=== PATIENT | female | born 1950 | race Caucasian/White ===

== ENCOUNTER 2023-09-27 18:44 | Inpatient (IN) | payer OTHER, SELFPAY ==
[2023-09-27] VITALS (7 sets, daily range): BP systolic 107–150; BP diastolic 56–83; BMI 21.1; BMI 20.4
[2023-09-27 16:07] LABS: COVID-19 Antigen Negative (Negative)
[2023-09-27 17:00] LABS: % Immature Granulocytes 3.1 % (0-0.5); % Lymphocytes 31.5 % (20.5-51.1); % Monocytes 14.5 % (1.7-9.3); % Neutrophils 49.9 % (42.2-75.2); Absolute Immature Granulocytes 0.1 10^3/uL (0-0.05); Absolute Lymphocytes 1.3 10^3/uL (1.2-3.4); Absolute Monocytes 0.6 10^3/uL (0.1-0.6); Absolute Neutrophils 2.1 10^3/uL (1.4-6.5); Hematocrit 39.6 % (37.0-47.0); Hemoglobin 13.4 g/dL (12.0-16.0); Mean Corp Hgb Conc. 33.8 g/dL (33.0-37.0); Mean Corpuscular Hgb 28.5 pg (27.0-31.0); Mean Corpuscular Volume 84.3 fL (81.0-99.0); Mean Platelet Volume 10.9 fL (7.4-10.4); Nucleated Red Blood Cells % 0 %; Platelet Count 274 10^3/uL (130-400); White Blood Cell Count 4.1 10^3/uL (4.8-10.8)
--- NOTE | 2023-09-27 17:11 | ED.GENMED ---
History of Present Illness
General
Chief Complaint: Breathing Problem
Source: patient
Exam Limitations: none
Time Seen by Provider: 09/27/23 16:17
Nursing documentation reviewed up to this point in time: agreed with
Travel History
Have you had any contact with someone who has COVID-19?: No
Do you have any symptoms of coronavirus? Fever > 100 degrees, chills, cough, shortness of breath, sore throat, loss of taste or smell, muscle aches, or headache?: Yes
Symptoms:: fever and cough
History of Present Illness
History of Present Illness:
Patient presents to ED secondary to worsening cough, shortness of breath, and decreased appetite, along with fever as high as up to 105 over the past 1 week. Denies chest pain. Denies nausea, vomiting, or diarrhea. Denies headache. Denies
dizziness. Denies recent travel. Denies sick contact. Denies back pain. Denies leg pain or swelling.
Review of Systems
Review of Systems
Allergies reviewed?: Yes
All Other Systems: ROS reviewed and negative except as documented in HPI and ROS
Constitutional: Reports fever and chills
EENT: Reports no symptoms
Respiratory: Reports cough and trouble breathing
Cardiac: Reports no symptoms
ABD/GI: Reports no symptoms; Denies abdominal pain, vomiting or diarrhea
: Reports no symptoms
Musculoskeletal: Reports no symptoms
Skin: Reports no symptoms
Neurological: Reports no symptoms
Phy Exam
Physical Exam
Physical Exam:
Physical Exam
General: mild distress, not acutely ill. afebrile
Head: nc/at. eomi
Neck: supple. no meningeal signs.
Heart: s1/s2 regular rate and rhythm, no murmur. equal radial pulses.
Lungs: mild respiratory distress. diminished breath sounds bilaterally
Abdomen: normal bowel sounds. not tender.
Neuro: alert and oriented. no focal neurological deficits
Skin: no rash
Psychiatric: well kept. interactive and cooperative
Extremities: no edema. no calf tenderness.
Scores
Heart Failure Risk
Heart Failure Risk Score: Not Applicable
Course
Orders/Labs/Results
Orders:
Orders
09/27/23 Dinner
Regular
At Your Request: Full Participation
09/27/23 15:44
COVID-19 Antigen Urgent
Source: Nasal Swab
INF RAPID [Influenza A+B Rapid Molecular] Urgent
DARLYN Source: Nasal Swab
Specimen Description:
09/27/23 16:47
CR Chest - 2 Views Urgent
Comment:
Reason For Exam: cough/sob
09/27/23 16:48
Complete Blood Count/With Diff Urgent
Comprehensive Metabolic Panel Urgent
09/27/23 17:10
Guaifenesin/Codeine Solution [Robitussin AC] 10 ml PO NOW STA
09/27/23 17:57
Azithromycin 500 mg/250 ml [Zithromax Infusion] 500 mg in 250 ml IV NOW
CefTRIAXone [Rocephin] 1,000 mg IV NOW STA
09/27/23 18:06
Potassium Chloride [KCl] 40 meq PO NOW STA
09/27/23 18:11
EKG [Electrocardiogram (*1)] Urgent
Reason for Study: Tachycardia
EKG- Treatment ONCE
09/27/23 18:15
CT Chest Pe Study Urgent
Comment:
Reason For Exam: hypoxia, SOB
Lactic Acid Q4H
Comment: CANCEL 2nd LACTIC ACID IF 1st LACTIC ACID IS LESS THAN 2
Blood Culture Q30M
DARLYN Source: Blood/Venous
Specimen Description:
Blood Culture Q30M
DARLYN Source: Blood/Venous
Specimen Description:
09/27/23 18:18
Admit/Transfer Patient As Directed
Co-Sign Provider:
Level of Care: Inpatient admission
Assign to:: IMU- Intermediate Care
Physician / Group: Cecil/hospitalist
Diagnosis: hypoxia
Reason for Hospitalization: hypoxia
Expected length of stay greater than two midnights?: Yes
ELOS- Estimated Length of Stay in days: 4
I certify the patient meets the requirements for IP care: Yes
09/27/23 18:19
Code Status As Directed
Resuscitation Status: Full Code
09/27/23 18:39
Procalcitonin Routine
09/27/23 19:51
Acetaminophen [Tylenol] 650 mg PO Q6HPRN PRN
09/27/23 19:51
MRSA Screen Routine
DARLYN Source: Nose
Specimen Description:
Activity As Directed
Activity Level: Out of Bed-Early Mobility
Intake/ Output As Directed
Frequency: Per unit guidelines
Vital Signs As Directed
Frequency: Per unit guidelines
Weight As Directed
Frequency: Once
Comment: on admission
Xopenex Reason for Use As Directed
Reason for ordering Xopenex instead of Albuterol: tachycardia
Ot Eval And Treat Routine
Pt Eval And Treat Routine
Activity Level: As Tolerated
DX Deep Vein Thrombosis Video Routine
09/27/23 20:00
0.9% Sodium Chloride 250 ml [Nss] 250 ml IV BOLUS
Ipratropium Nebs [Atrovent Nebules] 0.5 mg INH R TID
Levalbuterol [Xopenex 1.25 mg Inhalant Solution] 1.25 mg INH R TID
09/28/23 06:00
Basic Metabolic Panel IN AM
Complete Blood Count/With Diff IN AM
LFT [Fhjra-Hfam-Lybxtfm] IN AM
Levothyroxine [Synthroid] 50 mcg PO DAILY@0600
09/28/23 18:00
Azithromycin 500 mg/250 ml [Zithromax Infusion] 500 mg in 250 ml IV Q24H
CefTRIAXone [Rocephin] 1,000 mg IV Q24H
Enoxaparin Sodium [Lovenox] 40 mg SC QPM
09/29/23 06:00
Basic Metabolic Panel IN AM
Complete Blood Count/With Diff IN AM
LFT [Yzhis-Jlos-Dsfuvno] IN AM
09/30/23 06:00
Basic Metabolic Panel IN AM
Complete Blood Count/With Diff IN AM
LFT [Tjbeu-Euro-Mkyxzfy] IN AM
10/01/23 06:00
Basic Metabolic Panel IN AM
Complete Blood Count/With Diff IN AM
LFT [Bhcei-Vjla-Dtobwsd] IN AM
10/02/23 06:00
Basic Metabolic Panel IN AM
Complete Blood Count/With Diff IN AM
LFT [Onvnk-Gwwe-Tcrzyhc] IN AM
10/03/23 06:00
Basic Metabolic Panel IN AM
Complete Blood Count/With Diff IN AM
LFT [Icdbi-Ewow-Eszvdmk] IN AM
Abnormal Lab Results
09/27/23 09/27/23
16:48 18:39
WBC 4.1 L 10^3/uL
(4.8-10.8)
MPV 10.9 H fL
(7.4-10.4)
Abs Immat Gran (auto) 0.1 H 10^3/uL
(0-0.05)
Immature Gran % 3.1 H %
(0-0.5)
Monocytes % 14.5 H %
(1.7-9.3)
BUN 34 H mg/dl
(7-17)
Glucose 116 H mg/dl
(70-99)
AST 50 H U/L
(14-36)
ALT 73 H U/L
(0-35)
Alkaline Phosphatase 209 H U/L
(38-126)
Procalcitonin 9.10 H* ng/ml
(0.0-0.25)
09/27/23 16:48
09/27/23 16:48
Vital Signs
Initial and Last Documented VS:
Initial Vital Signs
Temp Pulse Resp BP Pulse Ox
99.2 F 104 22 150/83 91
09/27/23 15:37 09/27/23 15:37 09/27/23 15:37 09/27/23 15:37 09/27/23 15:37
Last Documented Vital Signs
Temp Pulse Resp BP Pulse Ox
100.0 F 114 16 129/78 98
09/27/23 19:59 09/27/23 20:03 09/27/23 20:03 09/27/23 19:17 09/27/23 20:19
MDM/Problems Addressed
MDM/Problems Addressed:
History, exam, and chest x-ray consistent with pneumonia, resulting in moderate hypoxia. As patient remains with oxygen via nasal cannula, will switch her over to mid flow oxygen. Patient will be admitted for further evaluation and treatment,
including IV antibiotics.
Critical care statement: A total of 30 minutes of critical care time was provided for this patient. This includes management of unstable vital signs, evaluation of the patient at bedside, reviewing the patient's pertinent medical records, discussion
with consultants, review of old EKGs and review of pertinent medical records. This time with separate from time utilized to perform the aforementioned documented procedures
*Critical Care Note
Total Time (30-74mins, 75-104mins- exclusive of procedures): 30 min
ED Attending Note
-
Portions of this chart may have been created with voice recognition software.� Occasional wrong word or��sound alike� substitutions may have occurred due to the inherent limitations of voice recognition software.
Discharge Plan
Departure
Patient Disposition: Admit
Date of Disposition: 09/27/23
Time of Disposition: 18:23
Admit to: IMU
Presentation/result/management discussed w/ accepting MD/DO: Hospitalist
Discharge Problem:
Pneumonia, Hypoxia
Interventions
Interventions:
*Risk Screen - Suicide Last Done: 09/27/23 16:49
*General Assessment Last Done: 09/27/23 16:49
*Neglect/Abuse Screening Last Done: 09/27/23 16:49
ED- Fall Risk Assessment Last Done: 09/27/23 16:50
*ED COVID-19 Vaccine History Last Done: 09/27/23 15:37
*Nursing Disposition Last Done: 09/27/23 19:53
ED- Cardiac Assessment Last Done: 09/27/23 16:50
ED- Pulmonary Assessment Last Done: 09/27/23 16:50
Discharge Date and Time
Discharge Date/Time: 09/27/23 19:45
[2023-09-27] MEDS: ROBITUSSIN AC 10 ML PO (17:15)
[2023-09-27 17:18] LABS: ALT (SGPT) 73 U/L (0-35); AST (SGOT) 50 U/L (14-36); Albumin 3.5 g/dl (3.5-5.0); Alkaline Phosphatase 209 U/L (38-126); Blood Urea Nitrogen 34 mg/dl (7-17); Calcium 9.4 mg/dl (8.4-10.2); Carbon Dioxide 26 mmol/L (22-30); Chloride 98 mmol/L (98-107); Estimated Creatinine Clearance 58 ml/min; Glucose 116 mg/dl (70-99); Potassium 3.5 mmol/L (3.5-5.1); Sodium 135 mmol/L (135-145); Total Bilirubin 1.3 mg/dl (0.2-1.3); Total Protein 6.4 g/dl (6.3-8.2); eGFR > 60.00
--- NOTE | 2023-09-27 18:02 | HPS.HSE ---
Family Physician
-
Family Physician: Oliva Vargas
Chief Complaint
-
Shortness of breath, cough, fever
History of Present Illness
HPI: 73-year-old male female, PMH hypothyroidism, p/w worsening shortness of breath and decreased appetite ongoing for 1 week. She also complained of mild cough and fever at home.
She denies to chest pain, N/V, change in bowel movement or urination. There is no recent travel or sick contact.
Medical History
Past Medical History
Past Medical History: Reports Other
Additional Past Medical History:
Hypothyroidism
Past Surgical History: Reports None
Social History
Tobacco: Non-smoker
Alcohol: Occasional
Personal:
Living: With Family
Family History
Family History: Not pertinent
Allergies / Home Medications
Allergies reflects when Allergies were last updated in [employer].
Home Medications with original date entered in [employer]
Allergy/Medication List:
Allergies
Allergy/AdvReac Type Severity Reaction Status Date / Time
Gadolinium-Containing Allergy Nausea / Verified 09/27/23 15:42
Contrast Medi Vomiting
Penicillins Allergy Rash Verified 09/27/23 15:42
Home Medications
acetaminophen 325 mg tablet (Tylenol) 650 mg PO Q4HPRN PRN mild pain 09/27/23
cholecalciferol (vitamin D3) 25 mcg (1,000 unit) tablet (Vitamin D3) 25 mcg PO DAILY 09/27/23
guaifenesin 100 mg/5 mL oral liquid 200 mg PO TIDPRN PRN cough 09/27/23
levothyroxine 50 mcg tablet (Synthroid) 50 mcg PO DAILY 09/27/23
Review of Systems
-
Respiratory: Reports See HPI, Cough and Trouble Breathing
Physical Exam
Vital Signs
Vital Signs
Temp Pulse Resp BP Pulse Ox
37.3 C 98 34 140/72 91
09/27/23 15:37 09/27/23 16:45 09/27/23 16:45 09/27/23 16:36 09/27/23 16:45
Physical Exam
General: Well Developed, Well Nourished, Comfortable, Conversant and Respiratory Distress
HEENT: NormoCephalic, Moist mucous membranes, Atraumatic and Oxygen (mid flow NC)
Respiratory: Clear, Crackles (R base) and Non Labored Respirations; No Accessory Resp Muscle Use
Cardiac: S1/S2 and Regular Rhythm; No Murmur or Rub
GI: Soft, Non Tender, Non Distended and Normal Bowel Sounds; No Organomegaly
Rectal: Deferred by Provider
Musculoskeletal: No Clubbing, No Cyanosis and No Edema
Skin: No Rash
Neuro: Awake
Psych: Calm and Intact Judgment/Insight
Laboratory Results
-
09/27/23 16:48
09/27/23 16:48
Laboratory Results
Total Bilirubin 1.3 mg/dl (0.2-1.3) 09/27/23 16:48
AST 50 U/L (14-36) H 09/27/23 16:48
ALT 73 U/L (0-35) H 09/27/23 16:48
Alkaline Phosphatase 209 U/L (38-126) H 09/27/23 16:48
Data Reviewed
-
Diagnostic Radiology: Image Personally Visualized and interpreted
Lab Data: Labs Reviewed by me
Impression/Plan
-
HPI: 73-year-old male female, PMH hypothyroidism, p/w worsening shortness of breath and decreased appetite ongoing for 1 week. She also complained of mild cough and fever at home.
She denies to chest pain, N/V, change in bowel movement or urination. There is no recent travel or sick contact.
A/P:
# Likely sepsis POA due to CAP
# Acute hypoxic respiratory failure POA
Placed on mid flow nasal cannula due to persistent hypoxia in the emergency room, cont O2 support and wean as tolerated
CXR with possible BL infiltrate, follow formal report
Check CT chest to r/o PE
COVID and flu test negative
Check procalcitonin, MRSA screen
cont Ceftriaxone/azithromycin
Continue DuoNebs with levalbuterol for shortness of breath
# Elevated LFT, likely reactive due to sepsis on admission
# Sinus tachycardia
Check EKG
# Hypothyroidism
Continue prior to admission Synthroid
DVT ppx: Lovenox SQ
FC
Critical care management for acute hypoxia requiring mid flow nasal cannula and admission to IMU
[2023-09-27] MEDS: ROCEPHIN 1000 MG IV (18:25)
[2023-09-27] MEDS: ZITHROMAX INFUSION 250 IV (18:32)
[2023-09-27] MEDS: KCL 40 MEQ PO (18:32)
[2023-09-27 18:38] LABS: Lactic Acid 1.1 mmol/L (0.7-2.0)
[2023-09-27] MEDS: XOPENEX 1.25 MG INHALANT SOLUTION INH (20:00)
[2023-09-27] MEDS: ATROVENT NEBULES 0.5 MG INH (20:00)
[2023-09-27] MEDS: NSS 250 IV (20:17)
[2023-09-28] VITALS (15 sets, daily range): BP systolic 90–109; BP diastolic 52–87; O2SAT 92–94; BMI 20.4
--- NOTE | 2023-09-28 01:55 | PTCARENOTE ---
New admit to floor at 1999. at bedside. Pt to floor on 15LMF, now weaned down to 3.5L. No SOB noted. NSR & ST on monitor. Up to BSC X1, weak but pt states thats from being sick. IVFabx. No other issues overnight. Will monitor.
--- NOTE | 2023-09-28 03:46 | PTCARENOTE ---
pt weaned from 15LMF to 2LNC, doing great. No SOB. CUrrently 95% on 2L.
[2023-09-28 04:43] LABS: % Basophils 1.1 % (0-2); % Immature Granulocytes 1.9 % (0-0.5); % Lymphocytes 35.1 % (20.5-51.1); % Monocytes 13.7 % (1.7-9.3); % Neutrophils 48.2 % (42.2-75.2); Absolute Basophils 0.1 10^3/uL (0-0.2); Absolute Immature Granulocytes 0.1 10^3/uL (0-0.05); Absolute Lymphocytes 2.2 10^3/uL (1.2-3.4); Absolute Monocytes 0.9 10^3/uL (0.1-0.6); Hematocrit 34.3 % (37.0-47.0); Hemoglobin 11.4 g/dL (12.0-16.0); Mean Corp Hgb Conc. 33.2 g/dL (33.0-37.0); Mean Corpuscular Hgb 28.7 pg (27.0-31.0); Mean Corpuscular Volume 86.4 fL (81.0-99.0); Mean Platelet Volume 10.7 fL (7.4-10.4); Nucleated Red Blood Cells % 0 %; Platelet Count 267 10^3/uL (130-400); Red Blood Cell Count 3.97 10^6/uL (4.20-5.40); Red Cell Dist. Width 14.2 % (11.5-14.5); White Blood Cell Count 6.3 10^3/uL (4.8-10.8)
[2023-09-28 05:51] LABS: ALT (SGPT) 75 U/L (0-35); AST (SGOT) 52 U/L (14-36); Albumin 2.8 g/dl (3.5-5.0); Alkaline Phosphatase 171 U/L (38-126); Blood Urea Nitrogen 23 mg/dl (7-17); Calcium 8.7 mg/dl (8.4-10.2); Carbon Dioxide 25 mmol/L (22-30); Chloride 105 mmol/L (98-107); Direct Bilirubin 0.6 mg/dl (0.0-0.4); Estimated Creatinine Clearance 68 ml/min; Glucose 93 mg/dl (70-99); Potassium 4.4 mmol/L (3.5-5.1); Sodium 135 mmol/L (135-145); Total Bilirubin 0.7 mg/dl (0.2-1.3); Total Protein 5.5 g/dl (6.3-8.2); eGFR > 60.00
[2023-09-28] MEDS: ROBITUSSIN 200 MG PO (05:58)
[2023-09-28] MEDS: SYNTHROID 50 MCG PO (05:58)
--- NOTE | 2023-09-28 06:14 | PTCARENOTE ---
Pt weaned to RA, 92%
[2023-09-28] MEDS: XOPENEX 1.25 MG INHALANT SOLUTION INH ×3 (07:26→19:28)
[2023-09-28] MEDS: ATROVENT NEBULES 0.5 MG INH ×3 (07:26→19:28)
--- NOTE | 2023-09-28 08:23 | W.PN.HOSP.TC ---
Today's Communication/Plan
-
see A/P
Assessment / Plan
Assessment / Plan
HPI: 73-year-old male female, PMH hypothyroidism, p/w worsening shortness of breath and decreased appetite ongoing for 1 week. She also complained of mild cough and fever at home.
She denies to chest pain, N/V, change in bowel movement or urination. There is no recent travel or sick contact.
A/P:
# Sepsis POA due to CAP
# Acute hypoxic respiratory failure POA
Placed on mid flow nasal cannula due to persistent hypoxia in the emergency room, weaned to 3L NC, cont O2 support and wean as tolerated
CXR with Bilateral pneumonia.
CT chest confirmed bilateral lower lobe pneumonia. No PE.
COVID and flu tests are negative
procalcitonin elevated at 9.1 on admission
Follow MRSA screen
cont Ceftriaxone/azithromycin
Continue DuoNebs with levalbuterol for shortness of breath,
add Mucinex and Tessalon PRN
# Elevated LFT, likely reactive due to sepsis on admission
Cont to monitor LFT
# Sinus tachycardia, resolved
EKG reviewed
# Hypothyroidism
Continue prior to admission Synthroid
DVT ppx: Lovenox SQ
FC
updated on the phone
Anticipated Discharge: > 48 hours
Subjective/Interval History
-
Date of Service: September 28, 2023
Objective Data
-
Labs:
Laboratory Results
09/28/23
04:29
WBC 6.3
Hgb 11.4 L
Hct 34.3 L
Plt Count 267
Sodium 135
Potassium 4.4 D
Chloride 105
Carbon Dioxide 25
BUN 23 H
Creatinine 0.6
Glucose 93
Calcium 8.7
Total Bilirubin 0.7
AST 52 H
ALT 75 H
Alkaline Phosphatase 171 H
Vital Signs:
Vital Signs
Temp Pulse Resp BP Pulse Ox
37.1 C 84 20 93/55 92
09/28/23 07:45 09/28/23 07:28 09/28/23 07:28 09/28/23 02:25 09/28/23 08:17
I&O
09/27/23 09/28/23 09/29/23
06:59 06:59 06:59
Intake Total 480 / 480
Balance 480 / 480
Review of Systems
-
Respiratory: Reports Cough and Trouble Breathing
Physical Exam
-
General: Well Developed, Well Nourished, Comfortable, Respiratory Distress and Conversant
HEENT: Normocephalic, Atraumatic, Nose Appears Normal, Ears Appear Normal and Oxygen (3L NC)
Respiratory: Clear to Auscultation, Crackles (bases) and Non Labored Respirations; Negative Accessory Resp Muscle Use
Cardiac: Regular Rhythm and S1/S2
GI: Soft, Nontender, Nondistended and Normal Bowel Sounds
Skin: Warm and Dry
Neuro: Awake and Alert
Psych: Calm and Intact Judgement/Insight
Data Reviewed
-
Diagnostic Radiology: Image personally visualized and interpreted and Report Reviewed by me
CT Scan: Report Reviewed by me, Discussed with Patient and Discussed with Family
Labs: Labs Reviewed by me
[2023-09-28] MEDS: MUCINEX 1200 MG PO ×2 (08:41→20:20)
[2023-09-28] MEDS: TESSALON PERLES 200 MG PO ×2 (08:49→16:45)
--- NOTE | 2023-09-28 14:52 | CM ---
CM met with pt bedside
Pt resides with her spouse in a 2SH with 1 IRISH
Full flight to 2nd floor
Pt is independent with her ADLs
Denies use of DMEs or home O2
PCP- Oliva Vargas
Rx- [facility]
Pt in IMU- ADC >48 hours
Pt on 3L midflow
PT/OT evals pending
CM will continue to follow pt for dc planning
Discharge Disposition- home, follow for VN and oxygen needs
--- NOTE | 2023-09-28 16:18 | PTCARENOTE ---
Patient had a strong, nonproductive cough this morning. Cough medications administered with relief. Patient out of bed to chair. Patient requiring 3 liters oxygen via nasal cannula, pulse ox 95% at this time, pulse ox dropped into the high 80s
during ambulation with PT. Patient has fair appetite needs to be encourage to eat. at bedside. Denying pain when asked.
[2023-09-28] MEDS: ZITHROMAX INFUSION 250 IV (16:34)
[2023-09-28] MEDS: LOVENOX 40 MG SC (16:44)
[2023-09-28] MEDS: STERILE WATER FOR INJECTION 10 ML IV (18:04)
[2023-09-28] MEDS: ROCEPHIN 1000 MG IV (18:05)
[2023-09-29] VITALS (16 sets, daily range): BP systolic 96–119; BP diastolic 50–72; O2SAT 94; BMI 20.6
[2023-09-29] MEDS: TESSALON PERLES 200 MG PO ×3 (04:16→20:33)
[2023-09-29] MEDS: SYNTHROID 50 MCG PO (04:19)
[2023-09-29 05:20] LABS: % Basophils 1.2 % (0-2); % Eosinophils 0.9 % (0-6); % Immature Granulocytes 6.6 % (0-0.5); % Lymphocytes 35.9 % (20.5-51.1); % Monocytes 11.6 % (1.7-9.3); % Neutrophils 43.8 % (42.2-75.2); Absolute Basophils 0.1 10^3/uL (0-0.2); Absolute Eosinophils 0.1 10^3/uL (0-0.7); Absolute Immature Granulocytes 0.4 10^3/uL (0-0.05); Absolute Lymphocytes 2.1 10^3/uL (1.2-3.4); Absolute Monocytes 0.7 10^3/uL (0.1-0.6); Absolute Neutrophils 2.6 10^3/uL (1.4-6.5); Hematocrit 36.2 % (37.0-47.0); Mean Corp Hgb Conc. 33.1 g/dL (33.0-37.0); Mean Corpuscular Hgb 28.7 pg (27.0-31.0); Mean Corpuscular Volume 86.6 fL (81.0-99.0); Mean Platelet Volume 10.5 fL (7.4-10.4); Nucleated Red Blood Cells % 0 %; Platelet Count 325 10^3/uL (130-400); Red Blood Cell Count 4.18 10^6/uL (4.20-5.40); Red Cell Dist. Width 14.2 % (11.5-14.5); White Blood Cell Count 5.9 10^3/uL (4.8-10.8)
[2023-09-29 05:30] LABS: ALT (SGPT) 50 U/L (0-35); AST (SGOT) 33 U/L (14-36); Albumin 2.8 g/dl (3.5-5.0); Alkaline Phosphatase 164 U/L (38-126); Blood Urea Nitrogen 29 mg/dl (7-17); Calcium 8.9 mg/dl (8.4-10.2); Carbon Dioxide 27 mmol/L (22-30); Chloride 104 mmol/L (98-107); Direct Bilirubin 0.5 mg/dl (0.0-0.4); Estimated Creatinine Clearance 68 ml/min; Glucose 102 mg/dl (70-99); Potassium 4.1 mmol/L (3.5-5.1); Sodium 138 mmol/L (135-145); Total Bilirubin 0.5 mg/dl (0.2-1.3); Total Protein 5.3 g/dl (6.3-8.2); eGFR > 60.00
--- NOTE | 2023-09-29 06:17 | PTCARENOTE ---
Cared for pt overnight. No changes from previous assessment. Remains on 2LNC, no SOB. Still coughing, tessalon pearls given. NO pain. OOB to BR, no ALVES. NSR. Will monitor.
[2023-09-29] MEDS: MUCINEX 1200 MG PO ×2 (07:16→20:33)
[2023-09-29] MEDS: ATROVENT NEBULES 0.5 MG INH ×3 (07:21→20:32)
[2023-09-29] MEDS: XOPENEX 1.25 MG INHALANT SOLUTION INH ×3 (07:21→20:32)
--- NOTE | 2023-09-29 08:43 | W.PN.HOSP.TC ---
Today's Communication/Plan
-
see A/P
Assessment / Plan
Assessment / Plan
HPI: 73-year-old male female, PMH hypothyroidism, p/w worsening shortness of breath and decreased appetite ongoing for 1 week. She also complained of mild cough and fever at home.
She denies to chest pain, N/V, change in bowel movement or urination. There is no recent travel or sick contact.
A/P:
# Sepsis POA due to CAP
# Acute hypoxic respiratory failure POA
Pt was placed on mid flow nasal cannula due to persistent hypoxia in the emergency room, weaned to 2L NC, cont O2 support and wean as tolerated
CXR with Bilateral pneumonia. CT chest confirmed bilateral lower lobe pneumonia, No PE.
COVID and flu tests are negative
procalcitonin elevated at 9.1 on admission
MRSA screen negative
cont Ceftriaxone/azithromycin
Continue DuoNebs with levalbuterol for shortness of breath,
added Mucinex and Tessalon PRN
# Elevated LFT, likely reactive due to sepsis on admission
Cont to monitor LFT, improving
# Sinus tachycardia, resolved
EKG reviewed
# Hypothyroidism
Continue prior to admission Synthroid
DVT ppx: Lovenox SQ
FC
DW RN
Anticipated Discharge: 24 - 48 hours
Subjective/Interval History
-
Date of Service: September 29, 2023
Objective Data
-
Labs:
Laboratory Results
09/29/23
04:19
WBC 5.9
Hgb 12.0
Hct 36.2 L
Plt Count 325 D
Sodium 138
Potassium 4.1
Chloride 104
Carbon Dioxide 27
BUN 29 H
Creatinine 0.6
Glucose 102 H
Calcium 8.9
Total Bilirubin 0.5
AST 33
ALT 50 H
Alkaline Phosphatase 164 H
Vital Signs:
Vital Signs
Temp Pulse Resp BP Pulse Ox
36.9 C 79 20 106/67 92
09/29/23 07:26 09/29/23 07:24 09/29/23 07:24 09/29/23 06:00 09/29/23 07:24
I&O
09/28/23 09/29/23 09/30/23
06:59 06:59 06:59
Intake Total 480 / 480 820 / 820
Output Total 150 / 150 125 / 125
Balance 480 / 480 670 / 670 -125 / -125
Review of Systems
-
All other systems: Reviewed and negative
Physical Exam
-
General: Well Developed, Well Nourished, Comfortable, Respiratory Distress and Conversant
HEENT: Normocephalic, Atraumatic, Nose Appears Normal, Ears Appear Normal and Oxygen (2L NC)
Respiratory: Clear to Auscultation, Crackles (bases, mild) and Non Labored Respirations; Negative Accessory Resp Muscle Use
Cardiac: Regular Rhythm and S1/S2
GI: Soft, Nontender, Nondistended and Normal Bowel Sounds
Skin: Warm and Dry
Neuro: Awake and Alert
Psych: Calm and Intact Judgement/Insight
Data Reviewed
-
Diagnostic Radiology: Image personally visualized and interpreted and Report Reviewed by me
CT Scan: Report Reviewed by me, Discussed with Patient and Discussed with Family
Labs: Labs Reviewed by me
[2023-09-29] MEDS: ZITHROMAX 500 MG PO (11:48)
[2023-09-29] MEDS: ANESTHETIC LOZENGE 1 LOZENGE PO (11:50)
--- NOTE | 2023-09-29 14:50 | CM ---
CM following re: discharge planning.
Reviewed pt's chart, met with pt and pt's at bedside.
PT and OT evaluations noted - outpatient PT/OT vs no needs recommended.
Both pt and her are aware and pt stated 'i will be fine, just need to wean off oxygen'. Pt currently on 2l NC of O2 and pt stated she feels she will not need home O2.
D/C plan: home no needs. to transport.
CM will follow with discharge plan updates as hospitalization progresses
--- NOTE | 2023-09-29 15:41 | PTCARENOTE ---
verbal in person report provided to receiving Mayra Holden. pt to go to ICU s/p IR.
--- NOTE | 2023-09-29 16:00 | PTCARENOTE ---
verbal report provided to receiving RN Naina and walking rounds completed.
--- NOTE | 2023-09-29 16:11 | PTCARENOTE ---
Pt received from prior day shift RN. GUILLAUME in chair with at bedside. Assessment as documented. Able to make needs known, call wayne within reach.
[2023-09-29] MEDS: LOVENOX 40 MG SC (18:12)
[2023-09-29] MEDS: ROCEPHIN 1000 MG IV (18:13)
[2023-09-29] MEDS: STERILE WATER FOR INJECTION 10 ML IV (18:13)
--- NOTE | 2023-09-29 23:45 | PTCARENOTE ---
Addendum entered by Joyce Morris RN 09/29/23 23:47:
Sat does improve to 94% on room air with deep breathing.
Original Note:
Pt was up OOB to the bathroom to bathe and she tolerated it well. Her O2 sat dropped to 89% on room air and recovered to 92% when back in bed. Encouraged pt to use her incentive spirometer ans to take deeper breaths. Sat does improve to 94% with
fdee
--- NOTE | 2023-09-29 23:48 | PTCARENOTE ---
Pt noted to have a short run of PAT approx 6 seconds at rate of 150 BPM. Pt had no symptoms and BP was stable. She was in bed at the time.
[2023-09-30] VITALS: BP 108/65
[2023-09-30 02:00] VITALS: BP 107/56
[2023-09-30 06:00] VITALS: BMI 20.4
[2023-09-30 06:10] VITALS: BP 105/63
[2023-09-30] MEDS: SYNTHROID 50 MCG PO (06:33)
[2023-09-30 06:35] LABS: % Eosinophils 0.7 % (0-6); % Immature Granulocytes 6.6 % (0-0.5); % Monocytes 12.1 % (1.7-9.3); % Neutrophils 50.6 % (42.2-75.2); Absolute Basophils 0.1 10^3/uL (0-0.2); Absolute Immature Granulocytes 0.4 10^3/uL (0-0.05); Absolute Lymphocytes 1.7 10^3/uL (1.2-3.4); Absolute Monocytes 0.7 10^3/uL (0.1-0.6); Hematocrit 34.2 % (37.0-47.0); Hemoglobin 11.5 g/dL (12.0-16.0); Mean Corp Hgb Conc. 33.6 g/dL (33.0-37.0); Mean Corpuscular Hgb 28.5 pg (27.0-31.0); Mean Corpuscular Volume 84.9 fL (81.0-99.0); Mean Platelet Volume 10.3 fL (7.4-10.4); Nucleated Red Blood Cells % 0 %; Platelet Count 349 10^3/uL (130-400); Red Blood Cell Count 4.03 10^6/uL (4.20-5.40); White Blood Cell Count 5.9 10^3/uL (4.8-10.8)
[2023-09-30 07:10] LABS: ALT (SGPT) 43 U/L (0-35); AST (SGOT) 26 U/L (14-36); Albumin 2.6 g/dl (3.5-5.0); Alkaline Phosphatase 142 U/L (38-126); Blood Urea Nitrogen 20 mg/dl (7-17); Calcium 8.6 mg/dl (8.4-10.2); Carbon Dioxide 28 mmol/L (22-30); Chloride 105 mmol/L (98-107); Direct Bilirubin 0.3 mg/dl (0.0-0.4); Estimated Creatinine Clearance 68 ml/min; Glucose 97 mg/dl (70-99); Potassium 3.9 mmol/L (3.5-5.1); Sodium 135 mmol/L (135-145); Total Bilirubin 0.4 mg/dl (0.2-1.3); Total Protein 5.1 g/dl (6.3-8.2); eGFR > 60.00
[2023-09-30] MEDS: XOPENEX 1.25 MG INHALANT SOLUTION INH (07:13)
[2023-09-30] MEDS: ATROVENT NEBULES 0.5 MG INH (07:13)
--- NOTE | 2023-09-30 07:59 | W.PN.HOSP.TC ---
Addendum entered and electronically signed by Eula Jacob MD 09/30/23 14:52:
total DC time 35 min
Original Note:
Today's Communication/Plan
-
see A/P
Assessment / Plan
Assessment / Plan
HPI: 73-year-old male female, PMH hypothyroidism, p/w worsening shortness of breath and decreased appetite ongoing for 1 week. She also complained of mild cough and fever at home.
She denies to chest pain, N/V, change in bowel movement or urination. There is no recent travel or sick contact.
A/P:
# Sepsis POA due to CAP
# Acute hypoxic respiratory failure POA , resolved
Pt was placed on mid flow nasal cannula due to hypoxia in the emergency room, weaned to RA
CXR with Bilateral pneumonia. CT chest confirmed bilateral lower lobe pneumonia, No PE.
COVID and flu tests are negative
procalcitonin elevated at 9.1 on admission
MRSA screen negative
cont Ceftriaxone/azithromycin with plan to transition to Cefdinir and PO Azithromycin at the time of discharge
Continue DuoNebs with levalbuterol for shortness of breath while inpt
added Mucinex and Tessalon PRN , can cont outpt
# Elevated LFT, likely reactive due to sepsis on admission
Cont to monitor, LFT improving
# Sinus tachycardia, resolved
EKG reviewed
# Hypothyroidism
Continue prior to admission Synthroid
DVT ppx: Lovenox SQ
FC
updated on the phone
Anticipated Discharge: Today
Subjective/Interval History
-
Date of Service: September 30, 2023
Objective Data
-
Labs:
Laboratory Results
09/30/23
06:10
WBC 5.9
Hgb 11.5 L
Hct 34.2 L
Plt Count 349
Sodium 135
Potassium 3.9
Chloride 105
Carbon Dioxide 28
BUN 20 H
Creatinine 0.6
Glucose 97
Calcium 8.6
Total Bilirubin 0.4
AST 26
ALT 43 H
Alkaline Phosphatase 142 H
Vital Signs:
Vital Signs
Temp Pulse Resp BP Pulse Ox
37.0 C 80 14 105/63 93
09/30/23 00:25 09/30/23 07:15 09/30/23 07:15 09/30/23 06:10 09/30/23 07:15
I&O
09/29/23 09/30/23 10/01/23
06:59 06:59 06:59
Intake Total 820 / 820 875 / 875
Output Total 150 / 150 1225 / 1225
Balance 670 / 670 -350 / -350
Review of Systems
-
All other systems: Reviewed and negative
Physical Exam
-
General: Well Developed, Well Nourished, Comfortable and Conversant
HEENT: Normocephalic, Atraumatic, Nose Appears Normal and Ears Appear Normal; Negative Oxygen (weaned to RA)
Respiratory: Clear to Auscultation, Crackles (bases, mild) and Non Labored Respirations; Negative Accessory Resp Muscle Use
Cardiac: Regular Rhythm and S1/S2
GI: Soft, Nontender, Nondistended and Normal Bowel Sounds
Skin: Warm and Dry
Neuro: Awake and Alert
Psych: Calm and Intact Judgement/Insight
Data Reviewed
-
Diagnostic Radiology: Image personally visualized and interpreted and Report Reviewed by me
CT Scan: Report Reviewed by me, Discussed with Patient and Discussed with Family
Labs: Labs Reviewed by me
[2023-09-30] MEDS: MUCINEX 1200 MG PO (08:34)
[2023-09-30] MEDS: TESSALON PERLES 200 MG PO (08:34)
[2023-09-30] MEDS: ZITHROMAX 500 MG PO (08:34)
[2023-09-30 08:41] VITALS: BP 99/59
--- NOTE | 2023-09-30 14:37 | W.DCSUMMARY ---
Discharge Summary
Discharge Data
Date of Admission: 09/27/23
Date of Discharge: 09/30/23
-
Pending Results: No
Hospital Course
Principal Diagnosis:
Sepsis on admission due to community-acquired pneumonia (CAP)
Acute hypoxic respiratory failure on admission, resolved
Reactive transaminitis
Chronic Diagnoses:�
Hypothyroidism on Synthroid
Consultations:�
None
Procedures:�
None
Clinical course:�
This is a 73-year-old female with past medical history as stated above, who presented with shortness of breath, decreased appetite and cough ongoing for 1 week.
Problem 1:
Sepsis due to CAP.
This was associated with acute hypoxic respiratory failure on admission, which has resolved.
She was initially placed on mid flow nasal cannula for O2 support on admission, and oxygen was later weaned back to room air.
Her chest x-ray showed bilateral pneumonia, which was confirmed on CT chest.
Her CT chest was negative for PE.
The patient's flu and COVID test were negative.
Her procalcitonin was elevated at 9.1 on admission.
Her MRSA screen was negative.
She received IV ceftriaxone and azithromycin during her hospital stay, and these were changed to oral Ceftin and azithromycin at the time of discharge.
She can continue with antibiotics for 3 more days following discharge.
She can also continue with Mucinex and Tessalon as needed following discharge.
Problem 2:
Elevated LFT, likely reactive due to sepsis on admission.
Her LFT have improved during her hospital stay. On the day of discharge, her AST and ALT were at 26 and 43, respectively.
She can continue to monitor LFT outpatient with result to her PCP.
As for the rest of her medical problems, they were stable during her hospital stay.
Discharge Plan
-
Patient Disposition: Home (Routine Discharge)
Discharge Diagnosis/Procedures: community acquired pneumonia with hypoxia on admission
Condition: Fair
Diet: As tolerated
Activity: As tolerated
Driving Restrictions: As prior to admission
Others Tests: chest X ray with your PCP in 4-6 weeks
Referrals:
Oliva Vargas, DO [Family Provider] - in less than 1 week
Additional Discharge Medication Instructions: Continue antibiotics Cefdinir and Azithromycin for 3 more days.
You can take Tessalon as needed for cough.
Prescriptions:
New
cefdinir 300 mg capsule
300 mg PO BID 3 Days Qty: 6 0RF
azithromycin 500 mg tablet
500 mg PO DAILY 3 Days Qty: 3 0RF
benzonatate 100 mg capsule
100 mg PO BID PRN (Reason: Cough) Qty: 10 0RF
Continued
acetaminophen [Tylenol] 325 mg Tablet
650 mg PO Q4HPRN PRN (Reason: mild pain)
guaifenesin 100 mg/5 mL Liquid
200 mg PO TIDPRN PRN (Reason: cough)
levothyroxine [Synthroid] 50 mcg Tablet
50 mcg PO DAILY
cholecalciferol (vitamin D3) [Vitamin D3] 25 mcg (1,000 unit) Tablet
25 mcg PO DAILY
Discharge Orders:
Discharge Patient (As Directed); Ordered 09/30/23
Ordered By: Eula Jacob
Discharge Date and Time
Discharge Date/Time: 09/30/23 10:51
Print Language: NIGERIEN
--- NOTE | 2023-09-30 17:02 | CM ---
Patient with Dx Sepsis, CAP, Acute hypoxic respiratory failure. PT recommended outpt vs none, OT recommended HH vs none.
Met with patient who was preparing for d/c. The patient says she feels ready to go home today. Offered VN/outpatient PT and patient declined. IMM completed. Her was at the bedside and will provide transport home.
Plan home today.
== END 2023-09-30 10:51 | disposition home or self-care (01) | DRG 871 ==
LOC: IMU 18:44
PROVIDERS: Emergency Medicine; ADMITTING PHYSICIAN Internal Medicine; EMERGENCY PHYSICIAN Emergency Medicine; FAMILY PHYSICIAN Family Medicine
DX: A41.9 Sepsis, unspecified organism (principal); J18.9 Pneumonia, unspecified organism; J96.01 Acute respiratory failure with hypoxia; E03.9 Hypothyroidism, unspecified
CPT/HCPCS: 71046; 71275; 80053; 82248; 83605; 84145; 85025; 87040; 87070; 87449; 87502; 87811; 87899; 93005; 94640; 97116; 97162; 97166; 99291; Q9967

== ENCOUNTER → 2023-11-11 08:53 | Outpatient (REF) | payer OTHER, SELFPAY | LOC: HWRAD 08:53 | PROVIDERS: ATTENDING PHYSICIAN Family Medicine | DX: E04.1 Nontoxic single thyroid nodule (principal); J18.9 Pneumonia, unspecified organism | CPT/HCPCS: 71046 ==

== ENCOUNTER 2024-01-22 15:18 | Inpatient (IN) | payer OTHER, SELFPAY ==
[2024-01-22 11:16] VITALS: BP 138/78
[2024-01-22 11:50] LABS: COVID-19 Antigen Negative (Negative)
--- NOTE | 2024-01-22 11:55 | ED.GENMED ---
History of Present Illness
General
Chief Complaint: Cold/Flu/URI Symptoms
Source: patient
Time Seen by Provider: 01/22/24 11:45
History of Present Illness
History of Present Illness:
73-year-old female presents from home with 8 days of illness including fever cough weakness and shortness of breath. No prior underlying history of COPD or asthma. Was admitted earlier this year for sepsis secondary to pneumonia and hypoxia. She
feels similar this time as she did then. She has been having a temperature as high as 101.9 just before coming here. They state overnight her oxygen level dropped to 86%. No vomiting. She notes a decreased appetite. No other complaints
Phy Exam
Physical Exam
Physical Exam:
General: Well-appearing female coughing no acute respiratory distress
HEENT: Normocephalic neck is supple
Heart: Regular rate and rhythm no murmurs
Lungs: Coarse mainly left base greater than the right.
Extremities: No cyanosis or edema
Skin: Warm no rash
Course
Orders/Labs/Results
Orders:
Orders
01/22/24 11:18
CXR2 [CR Chest - 2 Views ] Urgent
Comment:
Reason For Exam: cough
01/22/24 11:20
COVID-19 Antigen Urgent
Source: Nasal Swab
Influenza A+B Rapid Molecular Urgent
DARLYN Source: Nasal Swab
Specimen Description:
01/22/24 11:26
EKG [Electrocardiogram (*1)] Stat
Reason for Study: Tachycardia
01/22/24 11:27
EKG- Treatment ONCE
01/22/24 12:19
Complete Blood Count/With Diff Urgent
Comprehensive Metabolic Panel Urgent
01/22/24 13:10
Acetaminophen [Tylenol] 650 mg PO NOW STA
01/22/24 14:00
Azithromycin 500 mg/250 ml [Zithromax Infusion] 500 mg in 250 ml IV NOW
CefTRIAXone [Rocephin] 1,000 mg IV NOW STA
Abnormal Lab Results
01/22/24
12:19
Abs Immat Gran (auto) 0.1 H 10^3/uL
(0-0.05)
Absolute Neuts (auto) 7.4 H 10^3/uL
(1.4-6.5)
Absolute Monos (auto) 1.2 H 10^3/uL
(0.1-0.6)
Immature Gran % 1.2 H %
(0-0.5)
Lymphocytes % 13.6 L %
(20.5-51.1)
Monocytes % 11.7 H %
(1.7-9.3)
BUN 23 H mg/dl
(7-17)
Glucose 117 H mg/dl
(70-99)
AST 42 H U/L
(14-36)
01/22/24 12:19
01/22/24 12:19
Vital Signs
Initial and Last Documented VS:
Initial Vital Signs
Temp Pulse Resp BP Pulse Ox
99 F 106 20 138/78 96
01/22/24 11:16 01/22/24 11:16 01/22/24 11:16 01/22/24 11:16 01/22/24 11:16
Last Documented Vital Signs
Temp Pulse Resp BP Pulse Ox
99 F 106 20 120/72 91
01/22/24 11:16 01/22/24 11:16 01/22/24 11:16 01/22/24 13:00 01/22/24 13:00
MDM/Problems Addressed
Differential Diagnosis Includes:
Fever cough shortness of breath fatigue. Consider viral illness, COVID or flu or recurrent pneumonia.
Will check labs. COVID and flu test pending. Chest x-ray pending.
*Critical Care Note
Total Time (30-74mins, 75-104mins- exclusive of procedures): Not Applicable
Update Note
Update Note:
Chest x-ray shows bilateral pneumonia. Temperature here 100.5. COVID and flu negative. Tylenol given. Started on rocephin/zithromax. She does drop to 89% on room air. Placed on 2 L nasal cannula oxygen. Admitted to hospitalist
ED Attending Note
-
Portions of this chart may have been created with voice recognition software.� Occasional wrong word or��sound alike� substitutions may have occurred due to the inherent limitations of voice recognition software.
Discharge Plan
Departure
Patient Disposition: Admit
Date of Disposition: 01/22/24
Time of Disposition: 14:09
Admit to: Telemetry
Presentation/result/management discussed w/ accepting MD/DO: Hospitalist
Discharge Problem:
Pneumonia, Hypoxia
Prescriptions:
No Action
acetaminophen [Tylenol] 325 mg Tablet
650 mg PO Q4HPRN PRN (Reason: mild pain)
guaifenesin 100 mg/5 mL Liquid
200 mg PO TIDPRN PRN (Reason: cough)
levothyroxine [Synthroid] 50 mcg Tablet
50 mcg PO DAILY
cholecalciferol (vitamin D3) [Vitamin D3] 25 mcg (1,000 unit) Tablet
25 mcg PO DAILY
cefdinir 300 mg capsule
300 mg PO BID 3 Days Qty: 6 0RF
azithromycin 500 mg tablet
500 mg PO DAILY 3 Days Qty: 3 0RF
benzonatate 100 mg capsule
100 mg PO BID PRN (Reason: Cough) Qty: 10 0RF
Referrals:
Oliva Vargas DO [Family Provider] -
Interventions
Interventions:
*Risk Screen - Suicide Last Done: 01/22/24 12:59
*General Assessment Last Done: 01/22/24 12:59
*Neglect/Abuse Screening Last Done: 01/22/24 12:59
ED- Fall Risk Assessment Last Done: 01/22/24 13:03
*ED COVID-19 Vaccine History Last Done: 01/22/24 12:59
ED- Pulmonary Assessment Last Done: 01/22/24 13:03
Discharge Date and Time
Print Language: NIGERIEN
[2024-01-22 12:11] VITALS: BMI 21.4
[2024-01-22 12:18] VITALS: BP 131/70
[2024-01-22 12:43] LABS: % Basophils 0.7 % (0-2); % Immature Granulocytes 1.2 % (0-0.5); % Lymphocytes 13.6 % (20.5-51.1); % Monocytes 11.7 % (1.7-9.3); % Neutrophils 72.8 % (42.2-75.2); Absolute Basophils 0.1 10^3/uL (0-0.2); Absolute Immature Granulocytes 0.1 10^3/uL (0-0.05); Absolute Lymphocytes 1.4 10^3/uL (1.2-3.4); Absolute Monocytes 1.2 10^3/uL (0.1-0.6); Absolute Neutrophils 7.4 10^3/uL (1.4-6.5); Hematocrit 38.7 % (37.0-47.0); Hemoglobin 13.2 g/dL (12.0-16.0); Mean Corp Hgb Conc. 34.1 g/dL (33.0-37.0); Mean Corpuscular Hgb 28.1 pg (27.0-31.0); Mean Corpuscular Volume 82.3 fL (81.0-99.0); Mean Platelet Volume 10.4 fL (7.4-10.4); Nucleated Red Blood Cells % 0 %; Platelet Count 225 10^3/uL (130-400); Red Cell Dist. Width 12.8 % (11.5-14.5); White Blood Cell Count 10.2 10^3/uL (4.8-10.8)
[2024-01-22 12:56] LABS: Blood Urea Nitrogen 23 mg/dl (7-17); Estimated Creatinine Clearance 52 ml/min; Glucose 117 mg/dl (70-99)
[2024-01-22 12:57] LABS: ALT (SGPT) 31 U/L (0-35); AST (SGOT) 42 U/L (14-36); Albumin 3.9 g/dl (3.5-5.0); Alkaline Phosphatase 80 U/L (38-126); Calcium 9.1 mg/dl (8.4-10.2); Carbon Dioxide 28 mmol/L (22-30); Chloride 99 mmol/L (98-107); Sodium 136 mmol/L (135-145); Total Bilirubin 0.9 mg/dl (0.2-1.3); Total Protein 6.3 g/dl (6.3-8.2); eGFR > 60.00
[2024-01-22 13:00] VITALS: BP 120/72
[2024-01-22 14:00] VITALS: BP 132/71
[2024-01-22] MEDS: TYLENOL 650 MG PO (14:01)
--- NOTE | 2024-01-22 14:10 | HPS.HSE ---
Family Physician
-
Family Physician: Oliva Vargas
Chief Complaint
-
Cough and congestion
History of Present Illness
73-year-old female with history of hypothyroidism and prior pneumonia in August of this year was admitted to hospital, who lives in family at home with her , presented to the hospital complaining of 1 week history of generalized body ache with
fatigue and malaise and cough with occasional production of yellowish phlegm, admits subjective fever and chill and hypoxia yesterday his temperature was more than 101 at home and has been checked her oxygen saturation at home last night was 86%,
admit feeling short of breath with exertion and any kind of activities, denies any chest pain or nausea or vomiting or any urinary or GI symptoms, no recollection of any sick contact or recent travel.
Chest x-ray showed by basilar infiltration and her O2 sat was 91% on room air. She is awake, alert and oriented x 3 and in the ER given Rocephin and Zithromax.
Medical History
Past Medical History
Past Medical History: Reports Other
Additional Past Medical History:
Past medical history archive reviewed:
History of pneumonia
Hypothyroidism
Social history: Lives at home with , no smoking and occasionally drinks alcohol and she is independent.
Family history: Reviewed and noncontributory
Past Surgical History: Reports Other
Social History
Unable to obtain full social history at this time due to: Other
Family History
Family History: Other
Allergies / Home Medications
Allergies reflects when Allergies were last updated in [employer].
Home Medications with original date entered in [employer]
Allergy/Medication List:
Allergies
Allergy/AdvReac Type Severity Reaction Status Date / Time
Gadolinium-Containing Allergy Nausea / Verified 01/22/24 11:15
Contrast Medi Vomiting
Penicillins Allergy Rash; Verified 01/22/24 11:15
tolerated
ceftriaxone
09/27/23
Home Medications
cholecalciferol (vitamin D3) 25 mcg (1,000 unit) tablet (Vitamin D3) 25 mcg PO DAILY Supplement 09/27/23
levothyroxine 50 mcg tablet (Synthroid) 50 mcg PO DAILY Thyroid 09/27/23
calcium carbonate 500 mg PO DAILY 01/22/24
therapeutic multivitamin 1 tab PO DAILYPRN PRN supplement 01/22/24
Review of Systems
-
A 12 point ROS was completed and negative except as noted: Yes
Physical Exam
Vital Signs
Vital Signs
Temp Pulse Resp BP Pulse Ox
99 F 106 20 120/72 91
01/22/24 11:16 01/22/24 11:16 01/22/24 11:16 01/22/24 13:00 01/22/24 13:00
Physical exam:
General: Awake, alert and oriented x3, not in distress and holds appropriate conversation.
HEENT: No active discharge, ecchymosis or bruising, moist lips, tongue and mucous membrane.
Eyes: No discharge or red conjunctiva, no nystagmus, pupils are reactive and equal
Neck:Supple, no JVD no bruit no goiter.
Respiratory: Normal AP contour and diameter, normal chest wall movement, normal respiratory effort, no respiratory distress,
Lungs: Good air entry bilaterally, vesicular sound with some congestion no wheezing or rhonchi, no rales, bibasilar scattered crackles
Heart: S1, S2 regular, normal rate, no added sound.
Gastrointestinal: Positive bowel sounds, soft, nontender, no guarding or rigidity or organomegaly
Musculoskeletal: , no chest wall abnormality or tenderness. All joints and extremities have good range of motion, no muscle tenderness or any joint swelling or tenderness.
Extremities: No pitting edema, good peripheral pulses, good range of motion
Skin: Warm and dry, no ulceration, normal color.
Neurological: Awake, alert and oriented x3, no facial droop, speech clear and comprehensive, good muscle tone, normal sensory and motor function
Psychiatric: Normal mood, normal thought and judgment, normal affect,
Physical Exam
General: Other
Laboratory Results
-
01/22/24 12:19
01/22/24 12:19
Laboratory Results
Total Bilirubin 0.9 mg/dl (0.2-1.3) 01/22/24 12:19
AST 42 U/L (14-36) H 01/22/24 12:19
ALT 31 U/L (0-35) 01/22/24 12:19
Alkaline Phosphatase 80 U/L (38-126) 01/22/24 12:19
CXR:New findings suggesting mild bilateral lower lobe pneumonia.
EKG: Showed normal sinus rhythm rate around 96, DE 132, QTc 439, normal axis otherwise no acute ST-T wave abnormality
Data Reviewed
-
Diagnostic Radiology: Image Personally Visualized and interpreted, Report Reviewed by me, Discussed with Patient and Discussed with Family
Lab Data: Labs Reviewed by me, Discussed with Patient and Discussed with Family
Old Records: Reviewed
Impression/Plan
-
IMPRESSION:
73-year-old female with history of hypothyroidism and prior pneumonia presented to the hospital with cough and congestion and fever workup showed bibasilar infiltration concerning for community-acquired pneumonia.
Acute hypoxic respiratory failure secondary to community-acquired pneumonia.
Oxygen
Try to wean off
IV Rocephin
Sputum culture
Blood culture already ordered by the ER
IV fluid
Cough medication as needed
Tylenol.
Bibasilar infiltration, concern for community-acquired pneumonia as patient denies any aspiration or choking or coughing during her meal.
IV Rocephin and Zithromax
IV fluid
Cough medication
Hypothyroidism:
Continue levothyroxine at 50 mcg dose
All discussed with the patient and the in detail expressed understanding
CODE STATUS full code
DVT prophylaxis Lovenox
[2024-01-22] MEDS: ROCEPHIN 1000 MG IV (14:19)
[2024-01-22] MEDS: ZITHROMAX INFUSION 250 IV (14:19)
[2024-01-22] MEDS: NSS 1000 IV ×2 (14:19→18:14)
[2024-01-22 16:39] VITALS: BP 102/58
[2024-01-22 16:40] VITALS: BMI 20.9
[2024-01-22] MEDS: LOVENOX 40 MG SC (18:21)
[2024-01-22] MEDS: OSCAL CAL 500 500 MG PO (18:21)
[2024-01-22] MEDS: VITAMIN D3 (cholecalciferol) 25 MCG PO (18:21)
[2024-01-22] MEDS: ROBITUSSIN 200 MG PO (20:13)
[2024-01-22] MEDS: TESSALON PERLES 200 MG PO (20:17)
[2024-01-22 23:28] VITALS: BP 95/57
[2024-01-23] MEDS: SYNTHROID 50 MCG PO (05:44)
[2024-01-23] MEDS: TESSALON PERLES 200 MG PO (05:51)
[2024-01-23] MEDS: ROBITUSSIN 200 MG PO ×2 (05:51→14:42)
[2024-01-23 07:25] VITALS: BP 96/64
[2024-01-23] MEDS: VITAMIN D3 (cholecalciferol) 25 MCG PO (07:38)
[2024-01-23] MEDS: OSCAL CAL 500 500 MG PO (07:38)
[2024-01-23] MEDS: NSS 1000 IV (07:40)
--- NOTE | 2024-01-23 08:23 | W.PN.HOSP.TC ---
Today's Communication/Plan
-
cef/Azithro
Assessment / Plan
Assessment / Plan
73-year-old female with history of hypothyroidism, prior pneumonia in August of this year requiring hospital admission presents to the ER complaining of generalized body aches/fatigue x 1 week with productive cough, fever and low pulse ox reading 86%
found to have pneumonia.
CXR 01/22/24
IMPRESSION:
New findings suggesting mild bilateral lower lobe pneumonia.
Acute hypoxic respiratory failure secondary to community-acquired pneumonia.
Community Acquired pneumonia
-follow up blood cultures
-continue Cef/Azithro
-IVF - stop later today
-F/U cultures
-mucinex/acapella
-wean O2 as able
Hypothyroidism:
Continue levothyroxine at 50 mcg dose
CODE STATUS full code
DVT prophylaxis Lovenox
Anticipated Discharge: 24 - 48 hours
Subjective/Interval History
-
Date of Service: January 23, 2024
continuing to cough
no chest pain
no fevers overnight
Objective Data
-
Vital Signs:
Vital Signs
Temp Pulse Resp BP Pulse Ox
98.3 F 83 17 96/64 95
01/23/24 07:25 01/23/24 07:25 01/23/24 07:25 01/23/24 07:25 01/23/24 07:25
Review of Systems
-
History Source: Patient
All other systems: Reviewed and negative
Physical Exam
-
General: Well Developed, Well Nourished, Comfortable and Conversant
HEENT: Normocephalic, Atraumatic, Nose Appears Normal, Ears Appear Normal and Oxygen (weaned to RA)
Respiratory: Clear to Auscultation, Crackles (bases, mild) and Non Labored Respirations; Negative Accessory Resp Muscle Use
Cardiac: Regular Rhythm and S1/S2
GI: Soft, Nontender, Nondistended and Normal Bowel Sounds
Skin: Warm and Dry
Neuro: Awake and Alert
Psych: Calm and Intact Judgement/Insight
Data Reviewed
-
Diagnostic Radiology: Report Reviewed by me
Labs: Labs Reviewed by me
[2024-01-23] MEDS: MUCINEX 600 MG PO ×2 (10:14→19:38)
[2024-01-23] MEDS: ZITHROMAX 500 MG PO (13:46)
[2024-01-23] MEDS: STERILE WATER FOR INJECTION 10 ML IV (13:47)
[2024-01-23] MEDS: ROCEPHIN 1000 MG IV (13:47)
[2024-01-23 14:57] VITALS: BP 103/62
--- NOTE | 2024-01-23 16:26 | CM ---
Reviewed chart, met with patient to obtain information for assessment. Patient stated that she lives with her spouse in a two story home with one step to enter. She described herself as independent with her ADLs, personal care, dressing and bathing.
She ambulates without device. She is able to cook, clean, do laundry and health professional. She drives and can transport herself to her appointments and does all of her own shopping.
Patient denied any DME. She is currently on 1 liter of o2 but is hoping to wean.
Patient has not had VN services.
She has not been to a SNF.
Patient stated that she feels that she is at baseline level of functioning and would like to return home when medically cleared.
Plan: Case management will continue to follow and assist with discharge planning. Home when stable. Will watch for o2 needs.
[2024-01-23] MEDS: LOVENOX 40 MG SC (18:20)
[2024-01-23 23:00] VITALS: BP 106/61
[2024-01-24] MEDS: TESSALON PERLES 200 MG PO (01:35)
[2024-01-24] MEDS: SYNTHROID 50 MCG PO (06:22)
[2024-01-24 07:19] VITALS: BP 115/72
[2024-01-24] MEDS: VITAMIN D3 (cholecalciferol) 25 MCG PO (08:09)
[2024-01-24] MEDS: OSCAL CAL 500 500 MG PO (08:09)
[2024-01-24] MEDS: MUCINEX 600 MG PO (08:09)
--- NOTE | 2024-01-24 08:19 | W.PN.HOSP.TC ---
Addendum entered and electronically signed by Eugenie Spears MD 01/25/24 08:48:
After study respiratory failure has been ruled out
Original Note:
Today's Communication/Plan
-
OK for DC
Assessment / Plan
Assessment / Plan
73-year-old female with history of hypothyroidism, prior pneumonia in August of this year requiring hospital admission presents to the ER complaining of generalized body aches/fatigue x 1 week with productive cough, fever and low pulse ox reading 86%
found to have pneumonia.
CXR 01/22/24
IMPRESSION:
New findings suggesting mild bilateral lower lobe pneumonia.
Acute hypoxic respiratory failure secondary to community-acquired pneumonia.
Community Acquired pneumonia
-off O2
-improving
-give one more dose cef and azithro today then continue cefdininr x 4 more days (s/p 3 doses azithro 500)
-OK for DC
Hypothyroidism:
Continue levothyroxine at 50 mcg dose
CODE STATUS full code
DVT prophylaxis Lovenox
Anticipated Discharge: Today
Subjective/Interval History
-
Date of Service: January 24, 2024
feeling well
didn't sleep well but wants to go home
continues to cough
clogged ears, no pain
Objective Data
-
Vital Signs:
Vital Signs
Temp Pulse Resp BP Pulse Ox
98.5 F 75 17 115/72 96
01/24/24 07:19 01/24/24 07:19 01/24/24 07:19 01/24/24 07:19 01/24/24 07:19
I&O
01/23/24 01/24/24 01/25/24
06:59 06:59 06:59
Intake Total 960 / 960
Balance 960 / 960
Review of Systems
-
History Source: Patient
All other systems: Reviewed and negative
Physical Exam
-
General: Well Developed, Well Nourished, Comfortable and Conversant
HEENT: Normocephalic, Atraumatic, Nose Appears Normal, Ears Appear Normal and Oxygen (weaned to RA)
Respiratory: Clear to Auscultation, Crackles (bases, mild) and Non Labored Respirations; Negative Accessory Resp Muscle Use
Cardiac: Regular Rhythm and S1/S2
GI: Soft, Nontender, Nondistended and Normal Bowel Sounds
Skin: Warm and Dry
Neuro: Awake and Alert
Psych: Calm and Intact Judgement/Insight
Data Reviewed
-
Diagnostic Radiology: Report Reviewed by me
Labs: Labs Reviewed by me
--- NOTE | 2024-01-24 08:22 | W.DS.TRANS ---
DC Summary - Front Attendant
-
Discharge Instructions:
Discharge Diagnosis/Procedures community acquired pneumonia
Diet Regular
Activity As tolerated
Driving Restrictions As prior to admission
Bathing Restrictions None
Instructions:
Stand-Alone Forms:
Changes to Home Medications: Yes
Discharge Medications:
DC Medications w/original date entered in [employer]
cholecalciferol (vitamin D3) 25 mcg (1,000 unit) tablet (Vitamin D3) 25 mcg PO DAILY Supplement 09/27/23
levothyroxine 50 mcg tablet (Synthroid) 50 mcg PO DAILY Thyroid 09/27/23
calcium carbonate 500 mg PO DAILY 01/22/24
therapeutic multivitamin 1 tab PO DAILYPRN PRN supplement 01/22/24
cefdinir 300 mg capsule 300 mg PO Q12 #8 caps 01/24/24
guaifenesin 600 mg tablet, extended release 12 hr 600 mg PO Q12 #28 tabs 01/24/24
Home Medication Changes
+ Cefdininr x 4 more days; Mucinex x 2 more weeks
Pending Results: No
--- NOTE | 2024-01-24 10:49 | CM ---
Patient seen bedside with , discussed plan for discharge today. Patient denies any needs. IMM reviewed, signed, placed in chart. CM will continue to follow for all discharge planning needs.
Plan; home no needs, spouse to transport home.
--- NOTE | 2024-01-24 12:08 | W.DCSUMMARY ---
Discharge Summary
Discharge Data
Date of Admission: 01/22/24
Date of Discharge: 01/24/24
-
Pending Results: No
Hospital Course
Discharging Physician : Dr. Eugenie Spears
Disposition : Home
Primary care physician : Dr. Oliva Vargas
Principal Discharge diagnosis : Community Acquired Pneumonia
Hospital Course :
Ms. Nettie Reese is a 73 yo woman with hx hypothyroidism, CAP requiring hospitalization in August of this year, presents to the ER complaining of generalized body aches, fever and productive cough over the past week. Symptoms had improved then
gotten worse. Triage vitals with T 99, P 106, BP 138/78, SpO2 91% room air. CXR with basilar infiltrates. She was started on IV Ceftriaxone and Azithromycin and admitted to medicine. Over the next 48 hours symptoms improved. She has now
received 3 doses of Azithromycin 500mg, 3 doses of IV Ceftriaxone and will be discharged on 4 more days of Cefdinir twice a day. She will follow up closely with her PCP.
Time spent on discharge was 32 minutes.
Important imaging findings :
CXR 01/22/24
IMPRESSION:
New findings suggesting mild bilateral lower lobe pneumonia.
Procedure findings :
Discharge Plan
-
Patient Disposition: Home (Routine Discharge)
Discharge Diagnosis/Procedures: community acquired pneumonia
Diet: Regular
Activity: As tolerated
Driving Restrictions: As prior to admission
Bathing Restrictions: None
Referrals:
Oliva Vargas, DO [Family Provider] - in less than 1 week
Additional Discharge Medication Instructions: You have 4 more days of Cefdinir (first dose morning of 01/23)
You completed 3 doses of Azithromycin 500mg in the hospital.
Continue to take mucinex (decongestant) until symptoms resolve.
Follow up within one week with PCP.
Prescriptions:
New
cefdinir 300 mg Capsule
300 mg PO Q12 Qty: 8 0RF
Rx Instructions:
take first dose morning of 01/24
guaifenesin 600 mg Tablet Extended Release 12hr
600 mg PO Q12 Qty: 28 0RF
Continued
levothyroxine [Synthroid] 50 mcg Tablet
50 mcg PO DAILY
cholecalciferol (vitamin D3) [Vitamin D3] 25 mcg (1,000 unit) Tablet
25 mcg PO DAILY
therapeutic multivitamin Tablet
1 tab PO DAILYPRN PRN (Reason: supplement)
calcium carbonate 500 mg calcium (1,250 mg) Tablet
500 mg PO DAILY
Discharge Orders:
Discharge Patient (As Directed); Ordered 01/24/24
Ordered By: Eugenie Spears
Discharge Date and Time
Print Language: SAO TOMEAN
[2024-01-24 12:15] VITALS: BP 115/73
[2024-01-24] MEDS: ROCEPHIN 1000 MG IV (12:31)
[2024-01-24] MEDS: ZITHROMAX 500 MG PO (12:31)
[2024-01-24] MEDS: STERILE WATER FOR INJECTION 10 ML IV (12:31)
--- NOTE | 2024-01-24 12:57 | PN.CDI ---
CDI
- -
CDI:
Physician Documentation Request
Admit Date: 01/22/24 15:18
Dear Doctor Tory,
Please review the following and provide your response in the progress notes.
Clinical Indicators:
Documentation in the record on 01/23 PN includes the diagnosis of acute hypoxic respiratory failure. T
- 01/23 PN 'Acute hypoxic respiratory failure secondary to community-acquired pneumonia'
- Documented VS 1-3L O2, pulse ox >90%
- On admission, 96% on room air
Based on the above information and the recognized standard for respiratory failure could you please verify this diagnoses is still accurate and reflective of the patient�s condition to ensure quality of the medical record.
Please clarify in the Progress Notes:
Acute hypoxic respiratory failure is/was present and is a clinical diagnosis based on (please include this additional support in the medical record)
After study respiratory failure has been ruled out
Other
Recognized standard criteria for respiratory failure includes:
(Source: [employer] [facility] Mar 2013)
ABGs (1 or more)
�PO2 <60 or RA SpO2 <91%
�PcO2 >50 and pH <7.35
�pO2 decrease or pcO2 increase by 10 mmHg from baseline if known Symptoms:
�Tachypnea, SOB, dyspnea
�Pallor or cyanosis
�Anxiety or restlessness
�Use of accessory muscles
�Retractions (grunting in newborns)
�Unable to speak in complete sentences
Supplemental O2 requirement of 40% (5LPM) or more Intubation is not required
Use of terms such as suspected, likely, concern for, or probable (associated with a specific diagnosis that is being evaluated, monitored, or treated as if it exists) are acceptable and can be coded in the inpatient setting, when documented at the
time of discharge.
Thank you,
Colleen Farmer RN
CDI Specialist
Please use your independent medical judgment in providing your response.
== END 2024-01-24 12:54 | disposition home or self-care (01) | DRG 195 ==
LOC: 3 WEST ACU 15:18
PROVIDERS: Physician Assistant; Student in an Organized Health Care Education/Training Program; ADMITTING PHYSICIAN Internal Medicine; ATTENDING PHYSICIAN Student in an Organized Health Care Education/Training Program; EMERGENCY PHYSICIAN Emergency Medicine; FAMILY PHYSICIAN Family Medicine
DX: J18.9 Pneumonia, unspecified organism (principal); E03.9 Hypothyroidism, unspecified; Z11.52 Encounter for screening for COVID-19
CPT/HCPCS: 71046; 80053; 85025; 87502; 87811; 93005; 96365; 96375; 99285

== ENCOUNTER → 2024-02-28 13:46 | Outpatient (REF) | payer OTHER, SELFPAY | LOC: HWRAD 13:46 | PROVIDERS: ATTENDING PHYSICIAN Family Medicine | DX: Z09 Encounter for follow-up examination after completed treatment for conditions other than malignant neoplasm (principal); J18.9 Pneumonia, unspecified organism | CPT/HCPCS: 71046 ==

== ENCOUNTER → 2024-09-21 13:57 | Outpatient (REF) | payer OTHER, SELFPAY | LOC: HWRAD 13:57 | PROVIDERS: ATTENDING PHYSICIAN Family Medicine | DX: B59 Pneumocystosis (principal) | CPT/HCPCS: 71046 ==

== ENCOUNTER → 2025-03-29 12:59 | Outpatient (REF) | payer OTHER, SELFPAY | LOC: HWRAD 12:59 | PROVIDERS: ATTENDING PHYSICIAN Family Medicine | DX: E04.2 Nontoxic multinodular goiter (principal) | CPT/HCPCS: 76536 ==